=== PATIENT | female | born 1960 ===

== ENCOUNTER 2022-03-20 11:43 | Day surgery (SDC) | payer OTHER ==
[~2022-03-20] VITALS: Ht 162.6 cm; Wt 100.7 kg
[2022-03-20] VITALS (9 sets, daily range): BP systolic 114–137; BP diastolic 54–95; PULSE 68–88; TEMP 98.1–98.5
[2022-03-20] MEDS ORDERED: NORCO 325 MG-51 TAB PO (16:02)
--- NOTE | 2022-03-20 16:42 | NUR ---
PATIENT RETURNED TO ROOM 1 FOLLOWING PROCEDURE. PATIENT ALERT AND ORIENTED, DENIES PAIN. REPORTS NAUSEA AND SORENESS OVER PORT A CATH SITE. BREATHING REGULAR AND UNLABORED ON 1L NASAL CANNULA. HEART TONES REGULAR. SEE CHART FOR VITAL SIGNS. NURSE HANDOFF COMPLETED IN ROOM. PER HANDOFF, PATIENT HAS BEEN AND CONTINUES TO BE DIAPHORETIC. 3 BANDAIDS PRESENT TO RIGHT SIDE OF ABDOMEN, CLEAN DRY AND INTACT. MEDIPORE DRESSING PRESENT TO LEFT SIDE OF CHEST, CLEAN DRY AND INTACT DRESSING. PATIENT HAD ICE CHIPS. CALL LIGHT IN REACH.
--- NOTE | 2022-03-20 17:40 | NUR ---
PATIENT ALERT AND ORIENTED, DENIES NAUSEA. PATIENT HAD VANILLA PUDDING AND WATER, NO DYSPHAGIA. MET WITH PATIENT IN ROOM TO DISCUSS PROCEDURE. PATIENT FAMILY PRESENT IN ROOM.
--- NOTE | 2022-03-20 17:49 | NUR ---
PATIENT PROVIDED WITH [facility] TO TAKE HOME, PER PROVIDER ORDER. UNABLE TO DOCUMENT BOTH RX NUMBERS IN EMAR. RX: [id number]. SEE EMAR FOR MEDICATION INFORMATION. PATIENT RECIEVED EDUCATION AND INSTRUCTIONS REGARDING [facility] MEDICATION. PATIENT VERBALIZED UNDERSTANDING OF TEACHING AND WAS DISCHARGED WITH BOTH MEDICATION PILL BOTTLES.
--- NOTE | 2022-03-20 17:50 | NUR ---
PATIENT REPORTED HEADACHE AND SORENESS TO PORT A CATH SITE. PAIN RATED 5/10. SEE EMAR FOR MOTRIN GIVEN.
--- NOTE | 2022-03-20 18:00 | NUR ---
DISCHARGE TEACHING COMPLETED WITH PRINTED INSTRUCTIONS AND EDUCATION SENT HOME WITH PATIENT. PER PROVIDER ORDERS, PATIENT PROVIDED WITH [facility]CO MEDICATION TO TAKE HOME. SEE EMAR FOR DOCUMENTATION. PATIENT VERBALIZED UNDERSTANDING OF TEACHING. PATIENT AMBULATED TO THE RESTROOM WITH STEADY GAIT AND VOIDED. PATIENT ALSO REPORTED THROWING UP A SMALL AMOUNT AND STATED THAT SHE "FEELS BETTER AND NO LONGER HAS A HEADACHE". A SMALL AMOUNT OF YELLOW EMESIS NOTED IN BATHROOM. PATIENT DENIES NAUSEA AT THIS TIME. ICE CHIPS GIVEN TO PATIENT. PATIENT INSTRUCTED TO CALL THE OFFICE WITH ANY QUESTIONS, CONCERNS OR IF PERSISTENT VOMITING AT HOME OCCURRED. IV REMOVED. PATIENT CHANGED INTO PERSONAL CLOTHING AND WAS DISCHARGED HOME WITH DAUGHTER TRANSPORT.
== END 2022-03-20 18:20 | disposition home or self-care (01) ==
LOC: SDCO 11:43
DX: C85.13 Unspecified B-cell lymphoma, intra-abdominal lymph nodes (principal); R63.4 Abnormal weight loss; R68.81 Early satiety; K45.0 Other specified abdominal hernia with obstruction, without gangrene
CPT/HCPCS: A4314; C1788; J0690; J1100; J1644; J2405; J2704; J3010